=== PATIENT | female | born 1940 | race Caucasian/White ===

== ENCOUNTER 2025-04-18 12:22 | Emergency (ER) | payer MEDICARE ==
[~2025-04-18] VITALS: Ht 157.5 cm; Wt 72.7 kg
[2025-04-18 12:29] VITALS: TEMP 96.8
--- NOTE | 2025-04-18 12:51 | Physician Documentation ---
History of Present Illness ~ General Chief Complaint: Flank Pain Stated Complaint: LOW BACK PAIN Time Seen by MD: 12:29 Source: patient Mode of Arrival: POV History of Present Illness Initial Comments Patient is an 84-year-old female with history of hypertension, diabetes and Parkinson's disease presenting to the ED for evaluation of right flank pain that started two nights ago. Patient first noticed onset of symptoms when she was in bed. Pain is persistent even at rest. Patient denies any injuries to the location. She has never had kidney stones. Patient denies dysuria, changes in urine color, nausea, vomiting, diarrhea, and chest pain. She walks around in a walker and lives at home with her and son who helps her with her daily activities. There is no other questions, concerns or complaints at this time. Medication Reconciliation Allergies: Coded Allergies: No Known Allergies (Unverified , 04/18/25) Scheduled Glipizide (Glipizide Er), 1 TAB PO DAILY, (Reported) Lisinopril (Lisinopril), 1 TAB PO DAILY, (Reported) Meloxicam (Meloxicam), 1 TAB PO DAILY, (Reported) Simvastatin (Simvastatin), 1 TAB PO HS, (Reported) Miscellaneous Medications Amlodipine Besylate (Amlodipine Besylate), (Reported) Carbidopa/Levodopa (Carbidopa-Levodopa 10-100 Tab), (Reported) Carbidopa/Levodopa (Carbidopa-Levodopa 25-100 Tab), (Reported) Risperidone (Risperidone), (Reported) Past Medical History Past Medical History: Parkinson's Disease, Hypertension, Diabetes Past Surgical History: orthopedic surgeries Other Past Surgical History: Hip replacement (L) Smoking Status: Unknown if ever smoked Alcohol Use: None Drug Use: none Lives with: Family Lives In: Home Review of Systems ROS ROS: Constitutional: Negative for fever and chills. HENT: Negative for sore throat and rhinorrhea. Eyes:Negative for pain and redness. Respiratory: Negative for cough and shortness of breath. Cardiovascular: Negative for chest pain and palpitations. Gastrointestinal: Negative for nausea and vomiting. Genitourinary: Negative for dysuria and hematuria. Musculoskeletal: + right flank pain. Negative for acute neck pain. Skin: Negative for rash and pruritus. Neurological: Negative for acute numbness or weakness. Physical Exam Physical Exam Vital Signs: Temperature: 96.8, Source: Temporal, Heart Rate: 60, Respiratory Rate: 20, BP: 193/95, Pulse Oximetry: 96, Weight: 72.730 Oxygen Flow Rate: 0 Physical Exam PHYSICAL EXAM: General Appearance: WDWN, No Distress, Cooperative, Awake Head: No Trauma. Scalp Normal Eyes: Lids normal, conjunctiva normal ENT: Mucous membranes normal, facial bones normal, lips normal, oropharynx normal Neck: Normal active FROM, non-tender with ROM, no meningeal signs, No JVD Back: Normal active FROM, non-tender with ROM, no CVAT Resp: Normal resp rate, normal flow, lungs clear to auscultation, no resp distress, no retractions Heart: Reg rhythm, no murmur Abd: Soft, non-tender, no guarding, no rebound, no mass Musc/Skel: 1+ right CVA TTP. No chest wall tenderness, Normal ROM UE's and LE's, No acute bone/joint abnormality or tenderness Skin: Normal color, no petechia/purpura, no rash Extremities: No edema Neuro: Motor 5/5 & Symmetric Bilat, CN 2-12 grossly intact and symmetric bilat. Oriented x4, speech normal. Psych: Mood & Affect: Normal, Depressed: 0, Awareness & insight normal Progress Results/Orders Results/Orders Orders - IGNACIO SCHREIBER MD Ct Abdomen Pelvis (04/18/25 13:51) Monitor (04/18/25 13:03) Saline Lock (04/18/25 13:03) Completed Orders - IGNACIO SCHREIBER MD Cbc/Diff (04/18/25 13:03) Lipase (04/18/25 13:03) Ondansetron Inj. (Zofran 4mg/2ml Vial) (04/18/25 13:05) Morphine 4mg/Ml Inj. (Morphine Inj.) (04/18/25 13:03) Normal Saline 1000ml (0.9% Sodium Chlori (04/18/25 13:05) Ct Abdomen Pelvis (04/18/25 13:51) BMP (04/18/25 13:03) Ua W/Microscopic, Cult If Ind (04/18/25 14:35) Ketorolac Trometh 15mg/Ml Vial (Toradol (04/18/25 15:15) Hydralazine Inj. (Apresoline Inj.) (04/18/25 15:20) Medications Received in ER Medications (Trade) Dose Ordered Sig/Jennifer Route PRN Reason Start Time Stop Time Status Last Admin Dose Admin (Zofran 4mg/2ml vial) 4 mg ONCE ONCE IV 04/18/25 13:05 04/18/25 13:07 DC 04/18/25 13:22 4 MG (morphine inj.) 2 mg ONCE STAT IV 04/18/25 13:03 04/18/25 13:07 DC 04/18/25 13:22 2 MG (0.9% sodium chloride (NS) 1000ml IV soln) 500 ml ONCE ONCE IVB 04/18/25 13:05 04/18/25 13:07 DC 04/18/25 13:21 500 ML (Toradol injection) 15 mg ONCE ONCE IV 04/18/25 15:15 04/18/25 15:16 DC 04/18/25 15:24 15 MG (Apresoline inj.) 5 mg ONCE ONCE IV 04/18/25 15:20 04/18/25 15:21 DC 04/18/25 15:25 5 MG Vital Signs 04/18/25 04/18/25 04/18/25 04/18/25 12:29 13:22 13:26 13:26 Temp 96.8 Pulse 60 63 Resp 20 16 16 16 B/P (MAP) 193/95 199/84 (122) Pulse Ox 96 97 O2 Flow Rate 0 0 04/18/25 04/18/25 04/18/25 04/18/25 14:15 15:13 15:25 15:37 Pulse 63 59 64 65 Resp 16 16 16 B/P (MAP) 207/101 (136) 206/91 (129) 191/88 (122) Pulse Ox 98 97 O2 Flow Rate 0 0 04/18/25 15:58 Pulse 85 Resp 16 B/P (MAP) 191/100 Pulse Ox 95 Laboratory Tests Test 04/18/25 13:17 04/18/25 14:35 White Blood Count 6.9 Red Blood Count 4.93 Hemoglobin 14.9 Hematocrit 43.8 Mean Corpuscular Volume 88.9 Mean Corpuscular Hemoglobin 30.1 Mean Corpuscular Hemoglobin Concent 33.9 Red Cell Distribution Width 13.6 Platelet Count 217 Mean Platelet Volume 8.6 Neutrophils (%) (Auto) 73.8 Lymphocytes (%) (Auto) 19.1 L Monocytes (%) (Auto) 6.1 Eosinophils (%) (Auto) 0.5 Basophils (%) (Auto) 0.5 Neutrophils # (Auto) 5.1 Lymphocytes # (Auto) 1.3 Monocytes # (Auto) 0.4 Eosinophils # (Auto) 0.0 Basophils # (Auto) 0.0 CBC Comment Sodium Level 138 Potassium Level 4.5 Chloride Level 105 Carbon Dioxide Level 23.1 L Anion Gap 10 Blood Urea Nitrogen 31 H Creatinine 1.19 H Estimated GFR/1.73 m2 43 BUN/Creatinine Ratio 26.1 H Glucose Level 239 H Calcium Level 9.8 Albumin 3.9 Lipase 31 Chemistry Comments Urine Specimen Description Cln catch midstream Urine Color Yellow Urine Clarity Clear Urine pH 5.5 Urine Specific [place] 1.025 Urine Protein Negative Urine Glucose (UA) 500 H Urine Ketones Trace H Urine Occult Blood Small Urine Nitrite Negative Urine Bilirubin Negative Urine Urobilinogen 0.2 Urine Leukocyte Esterase Negative Urine RBC 0-2 Urine WBC 0-4 Urine Squamous Epithelial Cells Few Urine Bacteria Few Urine Mucus Few Urine Culture Indicated Not ind Volume Urine Centrifuged 10 ml Urine Comment Medical Decision Making Additional information obtaine: family Findings at bedside providing additional historical information about pain Differential Diagnosis MDM: Patient is an 84-year-old female with history of hypertension, diabetes and Parkinson's disease presenting to the ED for evaluation of right flank pain that started two nights ago. ER COURSE -I have reviewed the triage note. History obtained from the patient and has been -All Labs, if applicable, independently reviewed by me I checked in EMR for old Records -Summary of additional information obtained from old records or from a source other than the patient: Patient's at bedside Repeat Evaluation: Pain-free Additional REPEAT EVALUATION: Results and plan of care discussed with patient, patient understands and is agreeable to plan and disposition 84-year-old female presents with acute right flank pain found to have ureterolithiasis, 2 mm, suspected to pass without issue, patient hydrated, pain controlled, no evidence of UTI or pyelonephritis, nonsurgical abdomen, no obstruction, perforation, appendicitis, cholecystitis, patient also with a history of hypertension, hypertensive today because she did not take her medication at home, improved with hydralazine 5 mg IV, patient discharged home in stable condition strict return precautions Departure Disposition: HOME / SELF CARE / HOMELESS Impression: Primary Impression: Calculus of kidney Additional Impression: Acute flank pain Referrals: NO PRIMARY CARE PROVIDER (PCP) 5 days Comments Follow up with the primary care physician in 5-7 days for further evaluation Education Educated: Patient, Family Educated regarding: diagnosis, treatment Signature Scribe Signature: Scribed for Ignacio Schreiber MD by Nishant Mahajan . 04/18/25 13:03 Attestation: The note accurately reflects work and decisions made by me.Ignacio Schreiber MD 04/18/25 IGNACIO SCHREIBER MD Apr 18, 2025 12:51 NISHANT FARRAR Apr 18, 2025 13:08
[2025-04-18] MEDS: normal saline 1000ML IV soln IVB ONE (13:21)
[2025-04-18] MEDS: ondansetron/PF 4mg/2ml inj IV ONE (13:22)
[2025-04-18] MEDS: morphine 4 MG/ML inj SYRINge IV STA (13:22)
[2025-04-18 13:30] LABS: MEAN PLATELET VOLUME 8.6 FL (7.4-10.4); RED CELL DISTRIBUTION WIDTH 13.6 % (11.5-14.5)
[2025-04-18 13:38] LABS: CREATININE 1.19 MG/DL (0.40-0.90); TOTAL CARBON DIOXIDE 23.1 MMOL/L (24-32); eCRCL 27 ML/MIN; eGFR 43 ML/MIN
--- NOTE | 2025-04-18 14:26 | RADIOLOGY REPORT ---
EXAM: CT CT ABDOMEN PELVIS INDICATION: Abdominal Pain TECHNIQUE: Volumetric multidetector CT images of the abdomen and pelvis were obtained without contrast. All CT scans at this facility use dose modulation, iterative reconstruction, and/or weight based dosing when appropriate to reduce radiation dose to as low as reasonably achievable. COMPARISON: None FINDINGS: [LOWER CHEST]: The partially visualized lung bases are clear without a pleural effusion. The cardiac size is normal without pericardial effusion. Question age- indeterminate left lateral low nondisplaced rib fractures. [LIVER]: Normal hepatic size without suspicious focal lesion. [GALLBLADDER AND BILIARY TREE]: No cholelithiasis. [SPLEEN]: Unremarkable. [PANCREAS]: Unremarkable. [ADRENAL GLANDS]: Unremarkable [KIDNEYS]: Mild right pelviectasis with trace possible right pelvic kidney stone. Small 2 mm right proximal ureteral stone with mild right hydroureter. No distal ureteral stone. No suspicious focal lesion. [BLADDER]: Unremarkable for the degree distention. [REPRODUCTIVE ORGANS]: Hysterectomy. [BOWEL/MESENTERY]: [id number] stool burden. Normal appendix. Stomach is normal. No CT evidence of bowel obstruction. [ASCITES]: Absent [LYMPHADENOPATHY]: No pathologically enlarged lymph nodes by CT size criteria [VASCULATURE]: No aneurysmal dilatation. [ABDOMINAL WALL]: Unremarkable. [MUSCULOSKELETAL]: Left hip arthroplasty. No acute fracture or aggressive focal osseous lesion. Multifocal degenerative change of the visualized spine. IMPRESSION: 1. Small 2 mm right proximal ureteral stone with mild right hydroureter. 2. Mild right pelviectasis and hydronephrosis. 3. Question age-indeterminate left lateral low nondisplaced rib fractures.
[2025-04-18 14:44] LABS: LEUKOCYTE ESTERASE ,URINE NEGATIVE (Neg); NITRITES, URINE NEGATIVE (Neg); OCCULT BLOOD,URINE SMALL (Neg)
[2025-04-18 14:47] LABS: UA COLLECTION TYPE CLN CATCH MIDSTREAM
[2025-04-18 14:48] LABS: MUCUS STRANDS FEW /LPF (Neg); SQUAMOUS EPITHELIAL CELL,UR FEW /LPF (FEW)
[2025-04-18] MEDS ORDERED: CARB1TAB36 (15:11)
[2025-04-18] MEDS ORDERED: MELO-102 PO (15:11)
[2025-04-18] MEDS ORDERED: SIMV10TA98 PO (15:11)
[2025-04-18] MEDS ORDERED: GLIP-297 PO (15:11)
[2025-04-18] MEDS ORDERED: RISP0.253 (15:11)
[2025-04-18] MEDS ORDERED: CARB-13 (15:11)
[2025-04-18] MEDS ORDERED: LISI10TA27 PO (15:11)
[2025-04-18] MEDS ORDERED: AMLO10TA13 (15:11)
[2025-04-18] MEDS: ketorolac trometh 15mg/ml vial 15 MG/ML ML IV ONE (15:24)
[2025-04-18] MEDS: hydrALAZINE 20mg/ml inj. IV ONE (15:25)
[2025-04-18 15:58] VITALS: BP 191/100; PULSE 85; RESP 16; O2SAT 95
== END 2025-04-18 15:58 | disposition home or self-care (01) ==
LOC: ER 12:25
DX: N20.2 Calculus of kidney with calculus of ureter (principal); E11.9 Type 2 diabetes mellitus without complications; I10 Essential (primary) hypertension; Z79.899 Other long term (current) drug therapy
CPT/HCPCS: 36415; 74176; 80048; 81001; 83690; 85025; 96374; 96375; 99285; J0360; J1885; J2270; J2405; J7030; J7040